=== PATIENT | female | born 1940 | race Caucasian/White ===

== ENCOUNTER 2023-11-25 14:08 | Inpatient (IN) | payer OTHER ==
[2023-11-25 16:36] LABS: BASO % 0.7 % (0-2.0); EOS % 2.3 % (0-4.5); HEMATOCRIT 42.4 % (32.4-45.2); HEMOGLOBIN 13.9 GM/dL (10.7-15.3); LYMPH % 13.3 % (8-40); MCH 29.3 pg (25.7-33.7); MCHC 32.8 g/dl (32.0-36.0); MEAN CELL VOLUME 89.2 fl (80-96); MONO % 3.9 % (3.8-10.2); NEUT % 79.8 % (42.8-82.8); PLATELET COUNT 353 10^3/uL (134-434); RBC 4.75 M/mm3 (3.60-5.2); RDW 13.9 % (11.6-15.6); WHITE BLOOD COUNT 13.5 K/mm3 (4.0-10.0)
[2023-11-25 16:54] LABS: POTASSIUM 4.9 mmol/L (3.5-5.1)
[2023-11-25 16:56] LABS: ALBUMIN 4.3 g/dl (3.4-5.0); CALCIUM 10.2 mg/dL (8.5-10.1)
[2023-11-25 16:59] LABS: CREATININE 1.3 mg/dL (0.55-1.3)
[2023-11-25 17:01] LABS: BILIRUBIN,TOTAL 0.5 mg/dL (0.2-1); TOT PROT 7.7 g/dl (6.4-8.2)
[2023-11-25] MEDS: SODIUM CHLORIDE 1,000 ML IV STA (23:43)
[2023-11-26 01:58] LABS: PH,URINE 5.5 (5.0-8.0); URINE APPEARANCE CLEAR; URINE BILIRUBIN NEGATIVE (NEGATIVE); URINE COLOR YELLOW; URINE GLUCOSE (UA) NEGATIVE (NEGATIVE); URINE KETONE 1+ (NEGATIVE); URINE LEUK ESTERASE NEGATIVE (NEGATIVE); URINE NITRITE NEGATIVE (NEGATIVE); URINE PROTEIN TRACE (NEGATIVE); URINE UROBILINOGEN 0.2 mg/dL (0.2-1.0)
[2023-11-26 06:39] LABS: BASO % 0.6 % (0-2.0); EOS % 6.1 % (0-4.5); HEMATOCRIT 36.1 % (32.4-45.2); HEMOGLOBIN 12.1 GM/dL (10.7-15.3); LYMPH % 29.2 % (8-40); MCH 29.7 pg (25.7-33.7); MCHC 33.7 g/dl (32.0-36.0); MEAN CELL VOLUME 88.4 fl (80-96); MONO % 7.4 % (3.8-10.2); NEUT % 56.7 % (42.8-82.8); PLATELET COUNT 293 10^3/uL (134-434); RBC 4.08 M/mm3 (3.60-5.2); RDW 13.6 % (11.6-15.6); WHITE BLOOD COUNT 7.8 K/mm3 (4.0-10.0)
[2023-11-26 07:02] LABS: POTASSIUM 4.4 mmol/L (3.5-5.1)
[2023-11-26 07:04] LABS: ALBUMIN 3.4 g/dl (3.4-5.0)
[2023-11-26 07:05] LABS: BLOOD UREA NITROGEN 23.9 mg/dL (7-18); MAGNESIUM 2.3 mg/dL (1.8-2.4)
[2023-11-26 07:08] LABS: BILIRUBIN,TOTAL 0.5 mg/dL (0.2-1); CALCIUM 8.6 mg/dL (8.5-10.1); CREATININE 1.1 mg/dL (0.55-1.3); PHOSPHOROUS 2.9 mg/dL (2.5-4.9); TOT PROT 6.2 g/dl (6.4-8.2)
[2023-11-26] MEDS: LOSARTAN POTASSIUM 50 MG TABLET PO SCH (12:56)
[2023-11-26] MEDS ORDERED: LOSARTAN POTASSIUM 50 MG TABLET ONE (12:56)
[2023-11-26] MEDS ORDERED: predniSONE 20 MG TABLET (UD) ONE (17:08)
[2023-11-26] MEDS: predniSONE 20 MG TABLET (UD) PO SCH (18:22)
[2023-11-26] MEDS ORDERED: ALBUTEROL SO4 2.5/IPRATROPIUM 0.5 INH SOL 3 ML VIAL.NEB. NEB ONE (20:53)
[2023-11-26] MEDS ORDERED: ATORVASTATIN CA 20 MG TABLET (FP) ONE (20:53)
[2023-11-26] MEDS: FLUTICASONE/SALMETEROL (WIXELA) 100 MCG/50 MCG DISKUS IH SCH (21:00)
[2023-11-26] MEDS: ATORVASTATIN CA 20 MG TABLET (FP) PO SCH (21:00)
[2023-11-26] MEDS: ALBUTEROL SO4 2.5/IPRATROPIUM 0.5 INH SOL 3 ML VIAL.NEB. NEB SCH (21:00)
[2023-11-26] MEDS ORDERED: hydrALAZINE HCL 25 MG TABLET (FP) ONE (21:24)
[2023-11-26] MEDS: hydrALAZINE HCL 25 MG TABLET (FP) PO PRN (21:28)
[2023-11-27 00:59] VITALS: BMI 23.3
[2023-11-27 08:40] LABS: HEMOGLOBIN 13.7 GM/dL (10.7-15.3); MCH 29.9 pg (25.7-33.7); MCHC 34.2 g/dl (32.0-36.0); MEAN CELL VOLUME 87.6 fl (80-96); MEAN PLT VOLUME 7.3 fl (7.5-11.1); PLATELET COUNT 355 10^3/uL (134-434); POTASSIUM 5.1 mmol/L (3.5-5.1); RBC 4.57 M/mm3 (3.60-5.2); RDW 13.6 % (11.6-15.6); WHITE BLOOD COUNT 9.6 K/mm3 (4.0-10.0)
[2023-11-27 08:45] LABS: CALCIUM 9.3 mg/dL (8.5-10.1)
[2023-11-27 08:49] LABS: CREATININE 0.9 mg/dL (0.55-1.3)
[2023-11-27 15:56] LABS: N-TERMINAL BNP 462.6 pg/ml (5-450)
[2023-11-28 08:04] LABS: HEMATOCRIT 36.7 % (32.4-45.2); HEMOGLOBIN 12.3 GM/dL (10.7-15.3); MCH 29.8 pg (25.7-33.7); MCHC 33.4 g/dl (32.0-36.0); MEAN PLT VOLUME 7.7 fl (7.5-11.1); PLATELET COUNT 328 10^3/uL (134-434); RBC 4.12 M/mm3 (3.60-5.2); RDW 13.5 % (11.6-15.6); WHITE BLOOD COUNT 14.5 K/mm3 (4.0-10.0)
[2023-11-28 08:17] LABS: POTASSIUM 4.2 mmol/L (3.5-5.1)
[2023-11-28 08:25] LABS: BLOOD UREA NITROGEN 31.4 mg/dL (7-18); CALCIUM 9.4 mg/dL (8.5-10.1)
[2023-11-28 08:26] LABS: MAGNESIUM 2.5 mg/dL (1.8-2.4)
[2023-11-28 08:29] LABS: CREATININE 1.1 mg/dL (0.55-1.3); PHOSPHOROUS 2.3 mg/dL (2.5-4.9)
[2023-11-28] MEDS: KETOROLAC TROMETHAMINE 15 MG/ML VIAL IM ONE (09:34)
[2023-11-28] MEDS: MAGNESIUM 2GM/50ML STERILE WATER IVPB IVPB ONE (09:34)
[2023-11-28] MEDS: NAPH,MB-DB/K PH,MBDB POWDER PACKET PO ONE (10:01)
[2023-11-28 11:07] VITALS: BP 131/52; PULSE 81; RESP 18; TEMP 98.2
== END 2023-11-28 13:55 | disposition home or self-care (01) | DRG 312 ==
LOC: JER 14:08 → JERBED 21:37 → OBSVTOIN 11-26 16:01 → J4W 11-26 23:44
PROVIDERS: ADMIT Internal Medicine; ATTEND Internal Medicine
DX: R55 Syncope and collapse (principal); E86.1 Hypovolemia; I10 Essential (primary) hypertension; E78.5 Hyperlipidemia, unspecified; D72.829 Elevated white blood cell count, unspecified; R94.31 Abnormal electrocardiogram [ECG] [EKG]; I44.7 Left bundle-branch block, unspecified; Z86.73 Personal history of transient ischemic attack (TIA), and cerebral infarction without residual deficits
CPT/HCPCS: 36415; 71045-TC-FY; 80048; 80053; 81003; 83735; 83880; 84100; 84484; 85025; 85027; 87086; 93005; 93010; 93306-TC; 94640; 94761; 97116-GP; 97161-GP; 99285-25; G0378